=== PATIENT | female | born 1990 | race Caucasian/White ===

== ENCOUNTER 2020-08-07 14:20 | Emergency (ER) | payer BC, SELFPAY ==
--- NOTE | ~2020-08-07 | US_ITS ---
EXAMINATION: US OB limited EXAM DATE: 08/07/2020 16:56 INDICATION: , vaginal bleeding. Assess position of placenta. 2nd trimester. TECHNIQUE: Pelvic obstetrical transabdominal sonogram was performed by a technologist. There are mu ltiple grayscale and Doppler images available for interpretation. FINDINGS: There is a single fetus identified in vertex presentation with a heart rate of 169 beats pe r minute. The placenta is located in the mostly posterior position. Small amount suspected to be Plac ental margin to internal cervical os distance is 2 cm. There is small hypoechoic region along the gely cental margin measuring about 1.5 cm. BIOMETRIC DATA: Biparietal diameter (BPD): 3.4cm ----------------> 16 weeks 3 days. Head circumference (HC): 11.2 cm ----------------> 17 weeks 0 days. Abdominal circumference (AC): 10.7 cm ----------> 16 weeks 4 days. Femur length (FL): 1.9 cm --------------------------> 15 weeks 4 days. IMPRESSION: 1. Single fetus in vertex presentation with heart rate 169 beats per minute. 2. Placental Margin to internal cervical os distance 2 cm. 3. Small, 1.5 cm marginal placental hypoechoic region which could be retroplacental hemorrhage. 4. Requested Biometrics Data screen shots to be sent to PACS, not available at this time. An addendu m can be added to this report when that becomes available, or if it does not, patient can be sent james for repeat exam and an addendum added. Reviewed, dictated and finalized at location A. IMPRESSION: 1. Single fetus in vertex presentation with heart rate 169 beats per minute. 2. Placental Margin to internal cervical os distance 2 cm. 3. Small, 1.5 cm marginal placental hypoechoic region which could be retroplac ental hemorrhage. 4. Requested Biometrics Data screen shots to be sent to PACS, not available at this time. An addendum can be added to this report when that becomes available , or if it does not, patient can be sent back for repeat exam and an addendum a dded.
[2020-08-07 14:30] VITALS: BP 157/88; PULSE 95; RESP 20; TEMP 37.1; O2SAT 100
[2020-08-07 14:42] LABS: Basophils Percent Auto 0.2 % (0.2-1.2); Eosinophils Absolute Auto 0.1 K/mm3 (0-0.3); Eosinophils Percent Auto 0.4 % (0-4.4); Hematocrit 35.9 % (37.0-47.0); Hemoglobin 11.7 g/dL (12.0-15.0); Immature Granulocyte Absolute 0.04 K/mm3 (0.00-0.031); Immature Granulocyte Percent A 0.4 % (0-0.5); Lymphocytes Absolute Auto 2.59 K/mm3 (0.9-3.2); Lymphocytes Percent Auto 22.9 % (18.3-44.2); Mean Corpuscular HGB Conc 32.6 g/dl (32-36); Mean Corpuscular Hemoglobin 26.5 pg (26-34); Mean Corpuscular Volume 81.4 fl (80-100); Mean Platelet Volume 10.8 fl (7.4-10.4); Monocytes Absolute Auto 0.7 K/mm3 (0.1-0.6); Monocytes Percent Auto 6.4 % (2.6-8.5); Neutrophils Absolute Auto 7.9 K/mm3 (1.3-6.7); Neutrophils Percent Auto 69.7 % (45.5-73.1); Platelet Count Result 256 k/mm3 (150-375); Red Blood Count 4.41 M/mm3 (4.2-5.4); Red Cell Distribution Width 14.4 % (11.5-14.5); White Blood Count 11.3 K/mm3 (4.5-10.0)
--- NOTE | 2020-08-07 16:04 | PC.NURSE ---
PT TO ULTRASOUND AT THIS TIME.
--- NOTE | 2020-08-07 16:16 | ED.GENADULT ---
HPI - General Adult General Chief complaint: Vaginal Bleeding Stated complaint: 16 weeks preg, vaginal bleeding Time Seen by Provider: 08/07/20 15:30 Source: patient and family Mode of arrival: ambulatory Limitations: no limitations History of Present Illness HPI narrative: Patient is a 29-year-old female who presents at 16 weeks per ultrasound is followed by Dr. Hanna patient notes this morning she began to have some vaginal bleeding and passed some clots with some mild cramping patient has had a ultrasound at 12 weeks which was normal. Patient notes that she has otherwise had only mild cramping during the . Patient denies any recent illness URI symptoms fever chills nausea vomiting presents in no distress. Patient is G2, P1. Patient last saw her cradle slide maker a week ago Related Data Home Medications Medication Instructions Recorded Confirmed No Home Medications 08/07/20 08/07/20 Allergies Allergy/AdvReac Type Severity Reaction Status Date / Time No Known Allergies Allergy Unknown Unverified 04/25/08 08:25 Review of Systems Review of Systems: All systems reviewed & are unremarkable except as noted in HPI and below PMFSH Social History Social History (Updated 08/07/20 @ 16:17 by Tj Marx PA-C) Smoking status: Never smoker Exam Narrative: Exam Narrative: GENERAL: Well-appearing, well-nourished, and in no acute distress. HEAD: Normocephalic, atraumatic. EYES: PERRLA and EOMI. ENT: Nares clear, no rhinorrhea or epistaxis. Mucous membranes moist. CHEST: Clear to auscultation. No respiratory distress. No wheezes rales or rhonchi HEART: Regular rate and rhythm. No murmur heard. Normal peripheral pulses. ABDOMEN: Soft, nontender, nondistended EXTREMITIES: Normal range of motion. No edema. SKIN: Warm, dry, no rash. NEURO: No focal deficits. Alert and oriented x3. PSYCH: Normal mood and affect. Course Course Emergency Course: Patient in the room at this time in no distress resting comfortably aware of case findings treatment plan and diagnosis agreeing to follow with her planned gynecological appointment made aware of recommendations of gynecology and provided with reasons to return Consultations Consultation #1: Discussed case with Dr. Phan who would like the patient to be set on pelvic rest to follow in clinic as planned Date: 08/07/20 Time: 17:50 Vital Signs Vital signs: Vital Signs Temperature 98.8 F 08/07/20 14:30 Pulse Rate 95 08/07/20 14:30 Respiratory Rate 20 08/07/20 14:30 Blood Pressure 157/88 H 08/07/20 14:30 Pulse Oximetry 100 08/07/20 14:30 Temperature 98.8 F 08/07/20 14:30 Pulse Rate 95 08/07/20 14:30 Respiratory Rate 20 08/07/20 14:30 Blood Pressure 157/88 H 08/07/20 14:30 Pulse Oximetry 100 08/07/20 14:30 Medical Decision Making MDM Narrative Medical decision making narrative: Patient is a 29-year-old female who presented with vaginal bleeding in was evaluated found to have intrauterine with retroplacental hemorrhage likely will be following with gynecology and is aware of recommendations of her buildings painter. Patient on arrival to emergency department was in no distress patient will be given pelvic rest instructions and reasons to return Vital Signs Vital Signs: Vital Signs Temperature 98.8 F 08/07/20 14:30 Pulse Rate 95 08/07/20 14:30 Respiratory Rate 20 08/07/20 14:30 Blood Pressure 157/88 H 08/07/20 14:30 Pulse Oximetry 100 08/07/20 14:30 Temperature 98.8 F 08/07/20 14:30 Pulse Rate 95 08/07/20 14:30 Respiratory Rate 20 08/07/20 14:30 Blood Pressure 157/88 H 08/07/20 14:30 Pulse Oximetry 100 08/07/20 14:30 Lab Data Result diagrams: 08/07/20 14:33 Labs: Lab Results 08/07/20 08/07/20 08/07/20 Range/Units 14:33 14:33 14:33 WBC 11.3 H (4.5-10.0) K/mm3 RBC 4.41 (4.2-5.4) M/mm3 Hgb 11.7 L (12.0-15.0) g/dL Hct 35.9 L (37.0-47.0)
--- NOTE | 2020-08-07 16:17 | PC.NURSE ---
PT STILL IN ULTRASOUND AT THIS TIME.
--- NOTE | 2020-08-07 16:34 | PC.NURSE ---
PT IN ULTRASOUND AT THIS TIME.
--- NOTE | 2020-08-07 17:09 | PC.NURSE ---
PT BROUGHT BACK TO ULTRASOUND BY TECH FOR ANOTHER PICTURE AT THIS TIME.
[2020-08-07 18:09] VITALS: BP 134/78; PULSE 92; RESP 18; O2SAT 100
== END 2020-08-07 18:10 | disposition home or self-care (01) ==
PROVIDERS: Emergency Provider Emergency Medicine
DX: O20.9 Hemorrhage in early pregnancy, unspecified (principal); Z3A.16 16 weeks gestation of pregnancy
CPT/HCPCS: 36415; 76815; 84702; 85025; 85461; 99284

== ENCOUNTER 2020-08-28 13:24 | Emergency (ER) | payer BC, SELFPAY ==
--- NOTE | ~2020-08-28 | US_ITS ---
EXAMINATION: US OB >= 14 weeks Fetus DATE: 08/28/2020 14:23 INDICATION: Vaginal bleeding during second trimester TECHNIQUE: Real-time ultrasound of the pelvis was performed. COMPARISON: None. FINDINGS: There is a single living fetus in breech presentation. The placenta is posterior and 10 cm from the i nternal cervical os. heart rate is 155 beats per minute (bpm). cardiac activity and feta l movement are noted. The amniotic fluid index is subjectively normal. The following biometric data were obtained: Biparietal diameter (BPD): 4.2 cm; head circumference (HC): 16.4 cm; abdominal circumference (AC): 14 .2 cm; femur length (FL): 2.9 cm. These measurements are concordant. Estimated weight is 288 g +/- 43 g, which correlates with the 49th percentile when 01/20/2021 is used as estimated date of delivery. As single measurements, these parameters are each equal to the following estimated gestational ages w ith ranges of +/- 2 standard deviations: BPD: 18 weeks 6 days +/- 1 weeks 5 days. HC: 19 weeks 1 days +/- 1 weeks 3 days. AC: 19 weeks 4 days +/- 2 weeks 0 days. FL: 19 weeks 1 days +/- 1 weeks 6 days. estimated gestational age based solely on measurements from this exam is 19 weeks 1 days +/- 1 weeks 2 days. IMPRESSION: 1. Single living fetus in breech presentation. 2. estimated gestational age based solely on measurements from this exam is 19 weeks 1 days +/- 1 weeks 2 days. 3. No correlate for vaginal bleeding identified. Reviewed, dictated and finalized at location A. 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
[2020-08-28 13:36] VITALS: BP 142/90; PULSE 108; RESP 18; TEMP 36.6; O2SAT 99
[2020-08-28 13:51] LABS: Add Urine Microscopic? YES; Appearance Urine Cloudy (Clear); Bacteria Urine Trace /hpf; Bilirubin Urine Negative (Negative); Blood Urine 3+ (Negative); Color Urine Yellow (Yellow); Glucose Urine UA Negative (Negative); Ketones Urine 2+ mg/dL (Negative); Leukocyte Esterase Ur 3+ LEU/UL (Negative); Mucus Urine Rare /lpf; Nitrate Urine Negative (Negative); Protein Urine 2+ mg/dL (Negative); RBC Urine >75 /hpf (0-2); Specific Grav Ur 1.019 (1.001-1.035); Squamous Epithelial Cell Urine Many /hpf (Few); Urobilinogen Urine Negative mg/dL (<2.0); WBC Urine >75 /hpf
--- NOTE | 2020-08-28 14:23 | ED.PREGNANCY ---
HPI - General Chief complaint: Vaginal Bleeding Stated complaint: Passed Blood Clot, 19 Weeks preg Time Seen by Provider: 08/28/20 13:36 Source: patient Mode of arrival: ambulatory Limitations: no limitations History of Present Illness HPI Narrative: This patient is 29 year old female approximately 19 weeks GA who presents for evaluation of vaginal bleeding. She has been having bleeding for 3 weeks. She reports 3 weeks ago she started having heavy vaginal bleeding so she was evaluated in the ER. She reports she was told she may have a retroplacental bleed. She has continued to have daily bleeding that has been mostly light but occasionally passing clots. Today she reports her bleeding has been light but when she stood up she passed a large clot. She reports daily cramping. Her OBGYN is Dr. Hanna and she was told to come to ER for evaluation. Related Data Home Medications Medication Instructions Recorded Confirmed No Home Medications 08/07/20 08/07/20 Allergies Allergy/AdvReac Type Severity Reaction Status Date / Time No Known Allergies Allergy Unknown Verified 08/28/20 13:41 Review of Systems Review of Systems: All systems reviewed & are unremarkable except as noted in HPI and below PMFSH Past Medical History Medical History (Updated 08/28/20 @ 15:59 by Shanda Clark MD) Patient denies medical problems Social History Social History (Updated 08/07/20 @ 16:17 by Tj Marx PA-C) Smoking status: Never smoker Gender identity (if verbalized by the patient): Female Exam Const: General: alert Orientation/consciousness: patient oriented x3 Neck: Neck: no lymphadenopathy Resp: Effort & Inspection: normal respiratory effort and no retractions Cardio: Rate: regular rate Rhythm: regular rhythm Heart sounds: no murmurs GI: GI Palp: Yes Soft to palpation, No Tenderness to palpation present (GI), No Guarding due to palpation present (GI) and No Rigid due to palpation Skin: General skin exam: normal color Rashes: no rashes Neuro: General: patient oriented x3 and moves all extremities Course Reevaluation(s) Reevaluation #1: I discussed with patient ultrasound did not show any acute abnormalities. I discussed her abnormal UA . She states she has antibiotics awaiting her at pharmacy for UTI. Date: 08/28/20 Time: 15:58 Consultations Consultation #1: I discussed case with Dr. Hanna who states he will see patient this week to evaluated. Date: 08/28/20 Time: 15:30 Vital Signs Vital signs: Vital Signs Temperature 98 F 08/28/20 13:36 Pulse Rate 108 H 08/28/20 13:36 Respiratory Rate 18 08/28/20 13:36 Blood Pressure 142/90 H 08/28/20 13:36 Pulse Oximetry 99 08/28/20 13:36 Temperature 98 F 08/28/20 13:36 Pulse Rate 108 H 08/28/20 13:36 Respiratory Rate 18 08/28/20 13:36 Blood Pressure 142/90 H 08/28/20 13:36 Pulse Oximetry 99 08/28/20 13:36 MDM - OB/Uterine Contractions Lab Data Attestation: I reviewed the patient's lab results. Result diagrams: 08/28/20 14:30 Labs: Lab Results 08/28/20 08/28/20 Range/Units 13:33 14:30 WBC 13.8 H (4.5-10.0) K/mm3 RBC 4.26 (4.2-5.4) M/mm3 Hgb 11.5 L (12.0-15.0) g/dL Hct 34.8 L (37.0-47.0) % MCV 81.7 (80-100) fl MCH 27.0 (26-34) pg MCHC 33.0 (32-36) g/dl RDW 14.1 (11.5-14.5) % Plt Count 247 (150-375) k/mm3 MPV 10.1 (7.4-10.4) fl Immature Gran % (Auto) 0.4 (0-0.5) % Neut % (Auto) 84.5 H (45.5-73.1) % Lymph % (Auto) 9.5 L (18.3-44.2) % [place] % (Auto) 5.2 (2.6-8.5) % Eos % (Auto) 0.2 (0-4.4) % Baso % (Auto) 0.2 (0.2-1.2) % Lymph # (Auto) 1.31 (0.9-3.2) K/mm3 [place] # (Auto) 0.7 H (0.1-0.6) K/mm3 Eos # (Auto) 0.0 (0-0.3) K/mm3 Baso # (Auto) 0.0 (0.0-0.1) K/mm3 Abs Immat Gran (auto) 0.06 H (0.00-0.031) K/mm3 Absolute Neuts (auto) 11.6 H (1.3-6.7) K/mm3 Absolute Nucleated RBC 0.0 (0
[2020-08-28 14:37] LABS: Basophils Percent Auto 0.2 % (0.2-1.2); Eosinophils Percent Auto 0.2 % (0-4.4); Hematocrit 34.8 % (37.0-47.0); Hemoglobin 11.5 g/dL (12.0-15.0); Immature Granulocyte Absolute 0.06 K/mm3 (0.00-0.031); Immature Granulocyte Percent A 0.4 % (0-0.5); Lymphocytes Absolute Auto 1.31 K/mm3 (0.9-3.2); Lymphocytes Percent Auto 9.5 % (18.3-44.2); Mean Corpuscular Volume 81.7 fl (80-100); Mean Platelet Volume 10.1 fl (7.4-10.4); Monocytes Absolute Auto 0.7 K/mm3 (0.1-0.6); Monocytes Percent Auto 5.2 % (2.6-8.5); Neutrophils Absolute Auto 11.6 K/mm3 (1.3-6.7); Neutrophils Percent Auto 84.5 % (45.5-73.1); Platelet Count Result 247 k/mm3 (150-375); Red Blood Count 4.26 M/mm3 (4.2-5.4); Red Cell Distribution Width 14.1 % (11.5-14.5); White Blood Count 13.8 K/mm3 (4.5-10.0)
== END 2020-08-28 16:28 | disposition home or self-care (01) ==
PROVIDERS: Emergency Provider General Practice
DX: O20.9 Hemorrhage in early pregnancy, unspecified (principal); Z3A.19 19 weeks gestation of pregnancy; O23.42 Unspecified infection of urinary tract in pregnancy, second trimester
CPT/HCPCS: 36415; 76805; 81001; 85025; 87086; 87088; 99284

== ENCOUNTER 2021-01-21 14:15 | Outpatient (CLI) | payer BC, MEDICAID, SELFPAY ==
--- NOTE | ~2021-01-21 | US_ITS ---
US OB limited 01/21/2021 15:53 Indication: Patient leaking fluid. Procedure: High-resolution Limited obstetrical ultrasound Comparison: Ultrasound dated 08/28/2020 Findings: There is a single living intrauterine in vertex presentation. Placenta is anterio r without previa. Amniotic fluid index is below normal limits measuring 7.5 cm (normal range for gest ational age is 7.9-18.5 cm). Cervical length is 4.7 cm. Impression: 1: Oligohydramnios. RENEE measures 7.5 cm. Reviewed, dictated and finalized at location B. Impression: 1: Oligohydramnios. RENEE measures 7.5 cm.
[2021-01-21 14:30] VITALS: TEMP 36.4
[2021-01-21 14:31] VITALS: BP 118/72; PULSE 78
[2021-01-21 14:46] VITALS: BP 104/59; PULSE 59
[2021-01-21 15:00] VITALS: BP 107/63; PULSE 61
[2021-01-21 15:15] VITALS: BP 100/71; PULSE 64
--- NOTE | 2021-01-21 15:26 | PC.NURSE ---
Dr Alvarado notified that ROM plus was negative, order for US to check fluid and cervical length.
[2021-01-21 15:31] VITALS: BP 104/55; PULSE 62
--- NOTE | 2021-01-21 16:00 | PC.NURSE ---
Dr Alvarado informed of REENE and US results. Orders to dc home and have patient call office to schedule repeat US and have patient drink lots of fluids and rest tonight.
== END 2021-01-21 16:12 | disposition home or self-care (01) ==
LOC: ANHOBOP 14:21 → ANHOBPP 14:24
PROVIDERS: Visit Provider Obstetrics & Gynecology
DX: O41.8X90 Other specified disorders of amniotic fluid and membranes, unspecified trimester, not applicable or unspecified (principal); O41.00X0 Oligohydramnios, unspecified trimester, not applicable or unspecified; Z3A.00 Weeks of gestation of pregnancy not specified
CPT/HCPCS: 76815; 84112; 99199

== ENCOUNTER 2021-05-09 14:06 | Outpatient (RCR) | payer BC, MEDICAID, SELFPAY ==
[2021-05-08] MEDS: BETAMETHASONE SOD PHOS/ACETATE 30 MG/5 ML VIAL 12 MG IM (13:59)
[2021-05-09] MEDS: BETAMETHASONE SOD PHOS/ACETATE 30 MG/5 ML VIAL 12 MG IM (14:17)
== END 2021-05-13 13:42 | disposition home or self-care (01) ==
LOC: ANHOBOP 14:06
PROVIDERS: Visit Provider Obstetrics & Gynecology
DX: O36.8990 Maternal care for other specified fetal problems, unspecified trimester, not applicable or unspecified (principal); Z3A.00 Weeks of gestation of pregnancy not specified
CPT/HCPCS: 96372; J0702

== ENCOUNTER 2021-05-29 13:21 | Observation (INO) | payer MEDICAID, SELFPAY ==
[2021-05-29 15:04] VITALS: BP 114/80; PULSE 97
[2021-05-29] MEDS: NIFEdipine 30 MG TAB.ER.24 PO (15:07)
[2021-05-29 15:15] VITALS: BP 115/76; PULSE 84
[2021-05-29 15:29] VITALS: BMI 33.7
--- NOTE | 2021-05-29 15:31 | OBADM ---
This patient, Rajni Núñez, admitted to the OB room Labor/Delivery/Recovery 119 for observation for contractions. Patient/family oriented to hospital policies and general routines including ID bracelet, bed and alarms, visiting hours, pain management, procedures, bathroom and other care routines, personal items, smoking policy, room service/diet, and visiting hours. Patient/Family are encouraged to report perceived risks to care and to ask questions if they do not understand what they are told or what they should do.
[2021-05-29] MEDS: LACTATED RINGERS 1,000 ML 999 ML IV CONT (16:04)
[2021-05-29 16:15] VITALS: BP 111/79; PULSE 85
[2021-05-29 17:05] VITALS: BP 116/76; PULSE 83; TEMP 36.3
[2021-05-29 17:30] LABS: Add Urine Microscopic? YES; Amorphous Sediment Urine Few; Appearance Urine Cloudy (Clear); Bilirubin Urine Negative (Negative); Blood Urine Negative (Negative); Color Urine Yellow (Yellow); Glucose Urine UA Negative (Negative); Ketones Urine 2+ mg/dL (Negative); Leukocyte Esterase Ur 1+ LEU/UL (Negative); Mucus Urine Few /lpf; Nitrate Urine Negative (Negative); Protein Urine Negative (Negative); RBC Urine 0-2 /hpf (0-2); Specific Grav Ur 1.018 (1.001-1.035); Squamous Epithelial Cell Urine Moderate /hpf (Few); Urobilinogen Urine Negative mg/dL (<2.0)
[2021-05-29 18:00] VITALS: BP 122/76; PULSE 101
--- NOTE | 2021-05-30 16:04 | P.PNOB_ITS ---
OB - Triage/Final Diagnosis Visit Information Comments/Additional reasons for admission: I have assessed the risk for this patient, Rajni Núñez, and determined that she would benefit from observation care. Evaluation Laboratory results: Laboratory Tests 05/29/21 17:06 Urine Color Yellow Urine Appearance Cloudy H Urine pH 6.0 Ur Specific [place] 1.018 Urine Protein Negative Urine Glucose (UA) Negative Urine Ketones 2+ H Ur Blood (Man) Negative Urine Nitrate Negative Urine Bilirubin Negative Urine Urobilinogen Negative Leukocyte Esterase Rfl 1+ H Urine RBC 0-2 Urine WBC 4-6 H Ur Squamous Epith Cells Moderate H Amorphous Sediment Few H Urine Mucus Few H Vital signs: Vital Signs - 24 hr 05/29/21 16:15 05/29/21 17:05 05/29/21 18:00 Temperature 97.3 F L Pulse Rate 85 83 101 H Blood Pressure 111/79 116/76 122/76 Final Diagnosis (1) False labor: Code(s): O47.9 - False labor, unspecified Status: Acute
== END 2021-05-29 19:10 | disposition home or self-care (01) ==
PROVIDERS: Admitting Provider Obstetrics & Gynecology; Visit Provider Obstetrics & Gynecology
DX: O47.03 False labor before 37 completed weeks of gestation, third trimester (principal); Z3A.34 34 weeks gestation of pregnancy
CPT/HCPCS: 81001; 96360; A9270; G0378; G0379; J7120

== ENCOUNTER 2021-06-28 06:42 | Inpatient (IN) | payer OTHER, SELFPAY ==
[2021-06-28] VITALS (86 sets, daily range): BP systolic 107–159; BP diastolic 56–128; PULSE 60–138; RESP 18; TEMP 36.2–36.9; O2SAT 97–100; BMI 34.6
[2021-06-28 07:21] LABS: Basophils Percent Auto 0.4 % (0.2-1.2); Eosinophils Percent Auto 0.3 % (0-4.4); Hematocrit 29.2 % (37.0-47.0); Hemoglobin 8.9 g/dL (12.0-15.0); Immature Granulocyte Absolute 0.07 K/mm3 (0.00-0.031); Lymphocytes Absolute Auto 2.21 K/mm3 (0.9-3.2); Lymphocytes Percent Auto 31.2 % (18.3-44.2); Mean Corpuscular HGB Conc 30.5 g/dl (32-36); Mean Corpuscular Hemoglobin 24.3 pg (26-34); Mean Corpuscular Volume 79.8 fl (80-100); Mean Platelet Volume 11.9 fl (7.4-10.4); Monocytes Absolute Auto 0.7 K/mm3 (0.1-0.6); Monocytes Percent Auto 9.9 % (2.6-8.5); Neutrophils Absolute Auto 4.1 K/mm3 (1.3-6.7); Neutrophils Percent Auto 57.2 % (45.5-73.1); Platelet Count Result 226 k/mm3 (150-375); Red Blood Count 3.66 M/mm3 (4.2-5.4); Red Cell Distribution Width 14.6 % (11.5-14.5); White Blood Count 7.1 K/mm3 (4.5-10.0)
[2021-06-28] MEDS: LACTATED RINGERS 1,000 ML 125 ML IV CONT ×2 (07:35→10:06)
[2021-06-28] MEDS: OXYTOCIN 30 UNITS/NS 500 ML 30 UNITS/500 ML BAG IV CONT (07:36)
[2021-06-28 08:11] LABS: HIV 1/2 Ab P24 Ag Result Negative (Negative)
--- NOTE | 2021-06-28 08:49 | PM.IMHP ---
H&P: HPI History of Present Illness Date/Time: 06/28/21 08:49 30 y/o presents for IOL at 39weeks. complicated by MTHFR, history of miscarriage, LEEP, ARIEL, depression, and chronic constipation. I explained her condition procedure and risks involved she understands accepts and agrees to proceed she understands maternal or indications for delivery with risks involved including but not limited to bleeding infection injury to bladder bowel baby pelvic vessels DVT pneumonia wound infections endometritis UTI the risk of anesthesia she also understands risk of shoulder dystocia and hemorrhage and agrees to proceed care began in October 2020 she has had 15 visits monitored with ultrasounds she really genetic screening and noninvasive testing negative female infant noted with negative anomaly screen B12 injections given monthly for MTHFR cervical polyp removed 2nd trimester. Abnormal 1 hour glucose -161 with 3 hour glucose tolerance test negative. Tdap given seen at [facility] April 24 pre term labor, corticosteroids given at 32 weeks. Serial screening antepartum testing with biophysical profile nonstress test normal weekly while on tocolytic therapy discontinued recently. 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 Chief Complaint: Term elective induction of labor Review of Systems Review of Systems: All systems reviewed & are unremarkable except as noted in HPI and below Constitutional: Constitutional: Reports no additional constitutional complaints Eyes: Eyes: Reports no additional eye complaints ENT: Reports system reviewed and no additional complaints, except as documented Cardiovascular: Cardiovascular: Reports no additional cardiovascular complaints Respiratory: Respiratory: Reports no additional respiratory complaints Gastrointestinal: Gastrointestinal: Reports no additional gastrointestinal complaints Genitourinary: Genitourinary: Reports no additional female genitourinary complaints Musculoskeletal: Musculoskeletal: Reports no additional musculoskeletal complaints Integumentary/Breasts: Skin/Breast: Reports system reviewed and no additional complaints, except as docu Neurologic: Reports system reviewed and no additional complaints, except as documented Psychiatric: Psychiatric: Reports no additional psychiatric complaints Endocrine: Endocrine: Reports no additional endocrine complaints Hematologic/Lymphatic: Hematologic/Lymphatic: Reports no additional hematologic/lymphatic complaints Allergic/Immunologic: Allergic/Immunologic: Reports no additional allergic/immunologic complaints [facility] Past Medical History Medical History (Updated 06/28/21 @ 09:21 by Sami Alvarado MD) Abnormal glucose tolerance affecting , antepartum Anemia affecting Compound heterozygous MTHFR mutation [id number] Depressive disorder Generalized anxiety disorder History of LEEP (loop electrosurgical excision procedure) of cervix complicating History of miscarriage Low serum progesterone Panic disorder Patient denies medical problems Surgical History Surgical History (Updated 06/28/21 @ 09:21 by Sami Alvarado MD) History of bariatric surgery History of loop electrical excision procedure (LEEP) Family History Family History Father Hypertension Diabetes mellitus High cholesterol Mother Hypertension High cholesterol Sibling Mitral valve prolapse Psoriasis Social History Social
--- NOTE | 2021-06-28 09:01 | WPDHPUPDATE1 ---
History and Physical Update Update Date/Time: 06/28/21 09:01 History and Physical has been reviewed, including an updated exam of the patient. There are NO changes in the patient's condition. Risks, benefits, and alternatives have been discussed and questions answered. Patient agrees to proceed with procedure. 30 y/o presents for IOL at 39weeks. complicated by MTHFR, history of miscarriage, LEEP, ARIEL, depression, and chronic constipation. 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
--- NOTE | 2021-06-28 09:01 | WPDOBADMIT ---
Obstetrics - Admit Note Admission Note: record reviewed. No pertinent additions to the history and/or any subsequent changes in the physical findings that are not consistent with the expected course of the were found. Additions to the history and/or subsequent changes in the physical findings follow. None. 30 y/o presents for IOL at 39weeks. complicated by MTHFR, history of miscarriage, LEEP, ARIEL, depression, and chronic constipation. 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
--- NOTE | 2021-06-28 09:12 | WPDANESEPP ---
Anes - Eval Pre Procedure Date/Time: 06/28/21 09:12 Pre Op Diagnosis: iol Patient Data Age: 30 Gender: F Height: 1.68 m Weight: 97.3 kg Last Vital Signs Pulse 82 06/28/21 09:00 BP 134/105 H 06/28/21 09:00 Pulse Ox 97 06/28/21 09:08 Allergies Allergy/AdvReac Type Severity Reaction Status Date / Time latex Allergy Hives Verified 06/03/21 13:36 Home Medications Medication Instructions Recorded Confirmed Type Progesterone Suppository 200 mg VAGINAL HS 05/29/21 05/29/21 History aspirin 81 mg PO DAILY 05/29/21 05/29/21 History bupropion HCl [Wellbutrin SR] 150 mg PO DAILY 05/29/21 05/29/21 History famotidine 20 mg PO HS 05/29/21 05/29/21 History ferrous sulfate [FeroSul] 325 mg PO DAILY 05/29/21 05/29/21 History folic acid 1 mg PO BID 05/29/21 05/29/21 History Laboratory Tests 06/28/21 06/28/21 06/28/21 07:13 07:13 07:13 WBC 7.1 K/mm3 K/mm3 (4.5-10.0) RBC 3.66 M/mm3 L M/mm3 (4.2-5.4) Hgb 8.9 g/dL L g/dL (12.0-15.0) Hct 29.2 % L % (37.0-47.0) MCV 79.8 fl L fl (80-100) MCH 24.3 pg L pg (26-34) MCHC 30.5 g/dl L g/dl (32-36) RDW 14.6 % H % (11.5-14.5) Plt Count 226 k/mm3 k/mm3 (150-375) MPV 11.9 fl H fl (7.4-10.4) Immature Gran % (Auto) 1.0 % H % (0-0.5) Neut % (Auto) 57.2 % % (45.5-73.1) Lymph % (Auto) 31.2 % % (18.3-44.2) [place] % (Auto) 9.9 % H % (2.6-8.5) Eos % (Auto) 0.3 % % (0-4.4) Baso % (Auto) 0.4 % % (0.2-1.2) Lymph # (Auto) 2.21 K/mm3 K/mm3 (0.9-3.2) [place] # (Auto) 0.7 K/mm3 H K/mm3 (0.1-0.6) Eos # (Auto) 0.0 K/mm3 K/mm3 (0-0.3) Baso # (Auto) 0.0 K/mm3 K/mm3 (0.0-0.1) Abs Immat Gran (auto) 0.07 K/mm3 H K/mm3 (0.00-0.031) Absolute Neuts (auto) 4.1 K/mm3 K/mm3 (1.3-6.7) Absolute Nucleated RBC 0.0 K/mm3 K/mm3 (0.0-0.012) Nucleated RBC % 0.0 % % (0.0-0.2) RPR Pending HIV 1&2 Ab/P24 Ag 4thGn Negative (Negative) Blood Type Antibody Screen 06/28/21 07:13 WBC RBC Hgb Hct MCV MCH MCHC RDW Plt Count MPV Immature Gran % (Auto) Neut % (Auto) Lymph % (Auto) [place] % (Auto) Eos % (Auto) Baso % (Auto) Lymph # (Auto) [place] # (Auto) Eos # (Auto) Baso # (Auto) Abs Immat Gran (auto) Absolute Neuts (auto) Absolute Nucleated RBC Nucleated RBC % RPR HIV 1&2 Ab/P24 Ag 4thGn Blood Type A Positive Antibody Screen Negative Patient hx anesthesia problems: none Family hx anesthesia problems: none [facility] Past Medical History Medical History Patient denies medical problems Family History Family History Father Hypertension Diabetes mellitus High cholesterol Mother Hypertension High cholesterol Sibling Mitral valve prolapse Psoriasis Social History Social History (Updated 08/07/20 @ 16:17 by Tj Marx PA-C) Smoking status: Never smoker Second hand tobacco smoke exposure: No Substance use: never Gender identity (if verbalized by the patient): Female Spiritual care concerns: No Exam Day of Procedure 06/28/21 09:12 Patient weight: obese Heart: regular rate and rhythm Lungs: normal air movement Airway: Mallampati scale class II Neurological: alert and oriented
--- NOTE | 2021-06-28 09:25 | PM.OBPNLAB ---
Pain Control Date/time seen: 06/28/21 09:25 Pain control: tolerating well Pelvic Exam Dilation (cm): 5 Effacement (%): 100 station: 0 Amniotic membrane status: Ruptured (Amniotomy artificial rupture membranes clear fluid obtained) Comments: scalp electrode and intrauterine pressure catheter placed Contractions Monitor mode: Internal Contraction frequency: 2 Contraction duration: 45 Contraction pattern: Regular Contraction phase: Contraction Contraction intensity: Moderate Status status: Category l Assessment and Plan Assessment: active labor and induction ongoing Plan: continuous present management Comments: Epidural anesthesia now deliver soon
[2021-06-28 09:47] LABS: Rapid Plasma Reagin Non-Reactive (NonReactive)
[2021-06-28] MEDS: FAMOTIDINE 20 MG/2 ML VIAL IV PUSH (10:24)
--- NOTE | 2021-06-28 10:31 | PM.OBPNLAB ---
Pain Control Date/time seen: 06/28/21 10:31 Pain control: tolerating well and epidural Pelvic Exam Dilation (cm): 8 Effacement (%): 100 station: 0 Amniotic membrane status: Ruptured (Amniotomy artificial rupture membranes clear fluid obtained) Contractions Monitor mode: Internal Contraction frequency: 2 Contraction pattern: Regular Contraction phase: Contraction Contraction intensity: Moderate Status status: Category l Assessment and Plan Assessment: active labor Plan: continuous present management
--- NOTE | 2021-06-28 10:44 | PM.OBPNLAB ---
Pain Control Date/time seen: 06/28/21 10:44 Pain control: tolerating well and epidural Pelvic Exam Dilation (cm): 9 Effacement (%): 100 station: +1 Amniotic membrane status: Ruptured (Amniotomy artificial rupture membranes clear fluid obtained) Contractions Monitor mode: Internal Contraction frequency: 2 Contraction pattern: Regular Contraction phase: Contraction Contraction intensity: Moderate Status status: Category l Assessment and Plan Assessment: active labor Plan: continuous present management
--- NOTE | 2021-06-28 10:45 | PM.OBPRVD ---
OB - Delivery Note Procedure Delivery date: 06/28/21 Procedure: Normal spontaneous vertex vaginal delivery a viable female infant and placenta Repair of first-degree perineal laceration events: Labor Induction Intrapartal events: None Induction method: AROM and per pitocin protocol Delivery augmentation: rupture of membranes Delivery monitor: internal FHT and internal uterine Route of delivery: Episiotomy description: None Laceration Description: Perineal - 1st Degree Delivery repair: vicryl (2 0) Specimen: Yes (Placenta, cord blood, cord blood gases) Quantitative Blood Loss (ml): 250 Anesthesia type: Epidural Disposition: floor Complications: None Narrative: Complete cervical dilation normal spontaneous vertex vaginal delivery a viable female infant with nuchal cord x1 reduced on the perineum infant delivered without difficulty normal delivery the anterior shoulder infant placed on the maternal abdomen where the cord was clamped and cut. The nose and throat were bulb suction the was stimulated and then handed to the nursery nurse in attendance scores given 8 9 at 1 and 5 minutes weight 7 lb 11 oz 19 and pinch is long baby born at 10:56 a.m. on 06/28/2022. Normal transition. Cord gases and cord blood were obtained from the placenta and then with Pitocin running intravenously the uterus contracted well and the placenta was delivered without difficulty spontaneously intact with a three-vessel cord. Blood clots removed from the intrauterine cavity. First-degree perineal laceration was repaired with 2 0 Vicryl suture in a running fashion. Cervix was checked there was no sponges left in the vagina there was no fistula sphincter was intact. Counts correct complications none specimens pathology as above delivery occurred in labor room 105. Antibiotics none VTE prevention not applicable patient ambulatory Stable condition after recovery to the floor [place] Baby Date of : 06/28/21 Time of : 10:56 Weeks of gestation at delivery: 39 gender: Female (Shirley) Weight (pounds): 7 Weight (ounces): 11 presentation: vertex position: Left Occiput Anterior Placenta delivery description: Spontaneous and Normal Configuration cord vessel description: 3 Vessels and Nuchal Cord score one minute: 8 score five minutes: 9 Narrative: Normal transition to the nursery stable condition normal exam
[2021-06-28] MEDS: OXYTOCIN 30 UNITS/NS 500 ML 30 UNITS/500 ML BAG 125 UNITS IV CONT (11:28)
[2021-06-28] MEDS: BENZOCAINE 20% AER SPR (*SP) 56 GM CAN 1 SPRAY TOPICAL (13:25)
[2021-06-28] MEDS: ACETAMINOPHEN 325 MG TABLET 650 MG PO (13:25)
[2021-06-28] MEDS: WITCH HAZEL 40 PADS 1 PAD TOPICAL (13:25)
[2021-06-28] MEDS: POLYSACCHARIDE IRON COMPLEX 150 MG CAPSULE PO (18:42)
[2021-06-28] MEDS: DOCUSATE SODIUM 100 MG CAPSULE PO (18:42)
[2021-06-28] MEDS: IBUPROFEN 600 MG TABLET PO (18:42)
[2021-06-29] MEDS: IBUPROFEN 600 MG TABLET PO ×2 (00:10→10:07)
[2021-06-29 00:12] VITALS: BP 133/59; PULSE 91; RESP 16; TEMP 37; O2SAT 99
[2021-06-29 04:13] VITALS: BP 136/83; PULSE 64; RESP 16; TEMP 36.8
[2021-06-29 05:25] LABS: Hematocrit 25.3 % (37.0-47.0); Hemoglobin 7.6 g/dL (12.0-15.0)
--- NOTE | 2021-06-29 08:21 | P.PNOB_ITS ---
OB - PN: Subj Subjective Date/time seen: 06/29/21 08:21 Patient comments: no complaints, pain well controlled, tolerating diet and flatus present [place] baby status: doing well [place] feeding status: exclusively breast feeding OB - PN: Obj Data Labs CBC & Chem 7: 06/29/21 04:38 Labs: Laboratory Results - last 24 hr 06/28/21 06/28/21 06/29/21 07:13 07:13 04:38 Hgb 7.6 L Hct 25.3 L RPR Non-reactive Blood Type A Positive Antibody Screen Negative OB - PN A/P Assessment and Plan (1) Term delivered: Code(s): O80 - Encounter for full-term uncomplicated delivery Status: Acute Plan day: 1 Plan: routine care, discharge home and follow up 6 weeks Time Spent With Patient Time: Total time spent is greater than 50% in coordination of care (as documented) at patient's floor/unit and/or counseling patient: Time with patient: less than 15 minutes Review of Systems Review of Systems: All systems reviewed & are unremarkable except as noted in HPI and below Exam Const: General: cooperative, healthy appearing, comfortable, no acute distress, well developed, alert and awake Nutritional Appearance: average body habitus Orientation/consciousness: patient oriented x3 Limitations: no limitations HENMT: Head: normal to inspection Eyes: General: appearance normal, both eyes and all related structures Neck: Neck: normal visual inspection Chest: Chest palpation & inspection: normal inspection of the chest Resp: Effort & Inspection: normal respiratory effort Auscultation: clear to auscultation bilaterally Cardio: Rate: regular rate Rhythm: regular rhythm GI: Inspection: normal to inspection GI Palp: Yes Soft to palpation : External Female Exam: normal external appearance Bimanual exam- vagina & uterus: non-tender Back/Spine/Pelvis: Back: no CVA tenderness Skin: General skin exam: normal color Neuro: General: patient oriented x3, gait normal, tone normal and moves all extremities Extrem: General: normal to inspection and full ROM Psych: Appearance: grossly normal Mental Status: mental status grossly normal Speech and movement: Normal speech and movement present Affect: normal affect Attitude: cooperative Thought process: Normal thought process present Thought content: Yes Normal thought content present Insight: Good insight present (Psych) Judgement: Good judgement present (Psych)
--- NOTE | 2021-06-29 08:25 | PM.OBDSVD ---
DS: Admitting Diagnosis Admitting Diagnosis (1) Term : Code(s): Z34.90 - Encounter for supervision of normal , unspecified, unspecified trimester Status: Acute Assessment and Plan: Pitocin per protocol low-dose amniotomy epidural anesthesia and deliver (2) Encounter for elective induction of labor: Code(s): Z34.90 - Encounter for supervision of normal , unspecified, unspecified trimester Status: Acute (3) Compound heterozygous MTHFR mutation [id number]: Code(s): Z15.89 - Genetic susceptibility to other disease Status: Acute (4) Anemia affecting : Code(s): O99.019 - Anemia complicating , unspecified trimester Status: Acute (5) History of LEEP (loop electrosurgical excision procedure) of cervix complicating : Code(s): O34.40 - Maternal care for other abnormalities of cervix, unspecified trimester; Z98.890 - Other specified postprocedural states Status: Acute (6) Depressive disorder: Code(s): F32.9 - Major depressive disorder, single episode, unspecified Status: Acute (7) Generalized anxiety disorder: Code(s): F41.1 - Generalized anxiety disorder Status: Acute (8) Panic disorder: Code(s): F41.0 - Panic disorder [episodic paroxysmal anxiety] Status: Acute DS: Discharge Diagnosis Discharge Diagnosis (1) Term delivered: Code(s): O80 - Encounter for full-term uncomplicated delivery Status: Acute (2) Encounter for elective induction of labor: Code(s): Z34.90 - Encounter for supervision of normal , unspecified, unspecified trimester Status: Acute (3) Compound heterozygous MTHFR mutation [id number]: Code(s): Z15.89 - Genetic susceptibility to other disease Status: Acute (4) Anemia affecting : Code(s): O99.019 - Anemia complicating , unspecified trimester Status: Acute (5) History of LEEP (loop electrosurgical excision procedure) of cervix complicating : Code(s): O34.40 - Maternal care for other abnormalities of cervix, unspecified trimester; Z98.890 - Other specified postprocedural states Status: Acute (6) Depressive disorder: Code(s): F32.9 - Major depressive disorder, single episode, unspecified Status: Acute (7) Generalized anxiety disorder: Code(s): F41.1 - Generalized anxiety disorder Status: Acute (8) Panic disorder: Code(s): F41.0 - Panic disorder [episodic paroxysmal anxiety] Status: Acute OB - DS: Summary Hospital Course Time spent discussing smoking cessation with patient: 3 to 10 minutes OB Procedures : Ultrasound OB Procedures Intrapartum: Spontaneous Vag Delivery OB Procedures: : None Peripartum Data Delivery Method: Natural Vaginal Laceration Description: Perineal - 1st Degree Episiotomy description: None complications: none 1: Gender: Female (Shirley) Disposition of : home Status at Discharge Cognitive/behavioral status at discharge: Normal Functional status at discharge: independent ambulation Overall status at discharge: patient is back to baseline Time Spent with Patient Time attestation: Total time spent providing and/or coordinating discharge services: Time spent: Less than 30 minutes Exam Const: General: cooperative, healthy appearing, comfortable, no acute distress, well developed, alert, awake and Physically active Nutritional Appearance: average body habitus Orientation/consciousness: patient oriented x3 Limitations: no limitations HENMT: Head: normal to inspection Eyes: General: appearance normal, both eyes and all related structures Neck: Neck: normal visual inspection Chest: Chest palpation & inspection: normal inspection of the chest Breast/axilla inspection: normal inspection of the breasts Resp: Effort & Inspection: no
[2021-06-29] MEDS: buPROPion HCL XL (24 HR) 150 MG TABCR PO (10:06)
[2021-06-29] MEDS: MULTIVIT/MIN/PREN/FOL AC/IRON TABLET 1 TAB PO (10:06)
[2021-06-29] MEDS: DOCUSATE SODIUM 100 MG CAPSULE PO (10:06)
[2021-06-29] MEDS: POLYSACCHARIDE IRON COMPLEX 150 MG CAPSULE PO (10:07)
[2021-06-29 12:32] VITALS: BP 120/76; PULSE 75; RESP 14; TEMP 37; O2SAT 99
[2021-07-01 14:11] VITALS: BP 143/84; PULSE 57; RESP 20; TEMP 37.1; O2SAT 100
== END 2021-06-29 14:35 | disposition home or self-care (01) | DRG 560 ==
LOC: ANHLDR 11:22 → ANHOB2 13:56
PROVIDERS: Admitting Provider Obstetrics & Gynecology; Visit Provider Obstetrics & Gynecology
DX: O99.284 Endocrine, nutritional and metabolic diseases complicating childbirth (principal); E72.12 Methylenetetrahydrofolate reductase deficiency; O70.0 First degree perineal laceration during delivery; O69.81X0 Labor and delivery complicated by cord around neck, without compression, not applicable or unspecified; O62.3 Precipitate labor; Z3A.39 39 weeks gestation of pregnancy; Z37.0 Single live birth
CPT/HCPCS: 36415; 85014; 85018; 85025; 86592; 86703; 86850; 86900; 86901; 88307; A9270; G0432; J2590; J2795; J7120

== ENCOUNTER 2021-07-04 07:55 | Outpatient (RCR) | payer BC, MEDICAID, SELFPAY ==
[2021-04-23 15:32] VITALS: PULSE 110
--- NOTE | 2021-04-23 16:28 | PC.NURSE ---
BPP 06/02.
[2021-04-30 14:23] VITALS: BP 116/70; PULSE 115
[2021-05-08 13:43] VITALS: BP 106/65; PULSE 93
[2021-05-15 13:13] VITALS: BP 117/62; PULSE 112
[2021-05-21 12:41] VITALS: BP 102/67; PULSE 111
[2021-05-30 18:15] VITALS: BP 112/76; PULSE 99
[2021-06-05 13:04] VITALS: BP 111/69; PULSE 84
[2021-06-12 15:53] VITALS: BP 112/73; PULSE 109
[2021-06-19 17:13] VITALS: BP 111/80; PULSE 88
[2021-06-26 16:36] VITALS: BP 122/87; PULSE 93
--- NOTE | ~2021-07-04 | US_ITS ---
EXAMINATION: US OB BPP wo non-stress DATE: 04/23/2021 15:49 INDICATION: History of late term miscarriage, third trimester TECHNIQUE: Real-time pelvic ultrasound was performed. The interpreting radiologist was not present fo r the study. COMPARISON: None. FINDINGS: There is a single living fetus in vertex presentation. The placenta is anterior. heart rate is 157 beats per minute (bpm). Biophysical profile performed by the technologist: breathing (30 sec sustained breathing in 30 minutes): 2 out of 2 movement (3 gross body movements in 30 minutes): 2 out of 2 tone (one episode of tienxmr-apzezpcxu-nvhjuvl limb movement): 2 out of 2 Amniotic fluid pocket (2 cm): 2 out of 2 Total score: 8 out of 8 IMPRESSION: 1. Single living fetus in vertex presentation. 2. Biophysical profile 8 out of 8. Reviewed, dictated and finalized at location B.
--- NOTE | ~2021-07-04 | US_ITS ---
EXAMINATION: US OB BPP wo non-stress EXAM DATE: 04/30/2021 14:20 INDICATION: Shortened cervix. 3rd trimester. TECHNIQUE: Pelvic obstetrical transabdominal sonogram was performed by a technologist. There are mu ltiple grayscale and Doppler images available for interpretation. Comparison is made to prior examina tion from 04/23/2021. FINDINGS: There is a single fetus identified in vertex presentation with a heart rate of 150 beats pe r minute. The placenta is located in the anterior fundal position. There is no sonographic evidence of retroplacental hemorrhage identified. BIOPHYSICAL PROFILE (performed by the technologist) breathing (30 sec sustained breathing in 30 minutes): 2 out of 2 movement (3 gross body movements in 30 minutes): 2 out of 2 tone (one episode of stwzlkv-pugrbjovy-yiqvfjk limb movement): 2 out of 2 Amniotic fluid pocket (2 cm): 2 out of 2 Total score: 8 out of 8 IMPRESSION: 1. Single fetus with heart rate of 150 bpm. 2. Normal biophysical profile score of 8 out of 8. Reviewed, dictated and finalized at location B.
== END 2021-07-22 23:59 | disposition home or self-care (01) ==
LOC: ANHOBOP 07:55
PROVIDERS: Visit Provider Obstetrics & Gynecology
DX: O26.873 Cervical shortening, third trimester (principal); Z87.410 Personal history of cervical dysplasia; Z3A.29 29 weeks gestation of pregnancy; Z3A.30 30 weeks gestation of pregnancy; Z3A.31 31 weeks gestation of pregnancy; Z3A.32 32 weeks gestation of pregnancy; Z3A.33 33 weeks gestation of pregnancy; Z3A.35 35 weeks gestation of pregnancy; Z3A.36 36 weeks gestation of pregnancy; Z3A.37 37 weeks gestation of pregnancy; Z3A.38 38 weeks gestation of pregnancy
CPT/HCPCS: 59025; 76819

== ENCOUNTER 2021-11-06 08:19 | Emergency (ER) | payer OTHER, SELFPAY ==
[2021-11-06 08:29] VITALS: BP 126/88; PULSE 91; RESP 16; TEMP 36.5; O2SAT 100
--- NOTE | 2021-11-06 08:32 | ED.URI ---
HPI - URI/Sore Throat General Chief Complaint: Upper Respiratory Infection Stated Complaint: sore throat Time Seen by Provider: 11/06/21 08:32 Source: patient Mode of arrival: ambulatory History of Present Illness HPI Narrative: patient presents with sore throat no trouble swallowing and no drooling. 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 patient had a negative covid test yesterday. MD elicited complaint: sore throat Related Data Home Medications Medication Instructions Recorded Confirmed bupropion HCl [Wellbutrin SR] 150 mg PO DAILY 05/29/21 11/06/21 Allergies Allergy/AdvReac Type Severity Reaction Status Date / Time latex Allergy Hives Verified 06/03/21 13:36 Review of Systems Review of Systems: CONSTITUTIONAL: Denies fever, chills, or sweats. EYES: Denies visual changes, redness, or discharge. ENT: Denies rhinorrhea, congestion, sore throat, or otalgia. CARDIOVASCULAR: Denies chest pain, palpitations, or edema. RESPIRATORY: Denies cough or dyspnea. GASTROINTESTINAL: Denies abdominal pain, nausea, vomiting, or diarrhea. GENITOURINARY: Denies dysuria or hematuria. SKIN: Denies rash or itching. MUSCULOSKELETAL: Denies back pain, joint pain, or myalgia. NEUROLOGIC: Denies headache, numbness, or weakness. PSYCHIATRIC: Denies anxiety or depression. [facility] Past Medical History Medical History (Updated 11/06/21 @ 08:50 by VICK Ventura) Abnormal glucose tolerance affecting , antepartum Anemia affecting Compound heterozygous MTHFR mutation [id number] Depressive disorder Generalized anxiety disorder History of LEEP (loop electrosurgical excision procedure) of cervix complicating History of miscarriage 08/31/2020119.5MVaginalAbortion, SpontaneousNone[place]Del[place], retroplacental hematoma,Chorioamnionitis Low serum progesterone Panic disorder Patient denies medical problems Vaginal delivery 05/16/20081395 hrs.6 lbs.14.99 oz.[facility] 08/31/2020119.5MVaginalAbortion, SpontaneousNoneYDelivered at [place], retroplacental hematoma,Chorioamnionitis Surgical History Surgical History (Updated 06/28/21 @ 09:41 by Sami Alvarado MD) History of bariatric surgery 2018 History of carpal tunnel surgery 2017 History of cholecystectomy 2018 History of loop electrical excision procedure (LEEP) 2016 Family History Family History Father Hypertension Diabetes mellitus High cholesterol Mother Hypertension High cholesterol Sibling Mitral valve prolapse Psoriasis Social History Social History (Updated 06/28/21 @ 09:22 by Sami Alvarado MD) Smoking status: Never smoker Second hand tobacco smoke exposure: No Alcohol intake: never Substance use: never Substance use type: does not use Gender identity (if verbalized by the patient): Female Sexual Orientation (if Verbalized by the Patient): Straight or Heterosexual Spiritual care concerns: No Agree to blood products: Yes Comments At time of signature, agree with nursing past medical, surgical, social and family history. There is no relevant family history pertinent to the presenting complaint Exam Narrative: GENERAL: Well-appearing, well-nourished, and in no acute distress. HEAD: Normocephalic, atraumatic. EYES: PERRLA and EOMI. ENT: Nares clear, no rhinorrhea or epistaxis. Mucous membranes moist. Mild pharyngeal erythremia with exudate no trismus can open mouth fully NECK: Supple. CHEST: Clear to auscultation. No respiratory distress. HEART: Regular rate and rhythm. No murmur heard. Normal peripheral pulses. ABDOMEN: Soft, nontender, nondistended, normal active bowel sounds. EXTREMITIES: Normal range of motion. No edema. SKIN: Warm, dry, no rash. NEURO: No focal deficits. Alert and oriented x3. Farhana Coma Scale Eye Opening: Spontaneous 4
== END 2021-11-06 08:55 | disposition home or self-care (01) ==
PROVIDERS: Emergency Provider Nurse Practitioner Family
DX: J02.9 Acute pharyngitis, unspecified (principal); F32.A Depression, unspecified; F41.1 Generalized anxiety disorder
CPT/HCPCS: 87081; 87880; 99213; G0463